=== PATIENT | female | born 1990 | race Caucasian/White ===

== ENCOUNTER 2022-08-20 16:10 | Emergency (ER) | payer OTHER ==
[~2022-08-20] VITALS: Ht 167.6 cm; Wt 53.1 kg
[2022-08-20] MEDS ORDERED: MORPHINE SULFATE INJ 4 MG/ML DISP.SYRIN ONE ×2 (17:20→20:46)
[2022-08-20] MEDS ORDERED: ONDANSETRON HCL/PF 4 MG/2 ML VIAL ONE ×2 (17:20→22:03)
[2022-08-20] MEDS ORDERED: ONDANSETRON HCL/PF 4 MG/2 ML VIAL IVP ONE (17:30)
[2022-08-20] MEDS ORDERED: IV NS 0.9% 1,000 ML BAG IV ONE ×3 (17:30→21:00)
[2022-08-20] MEDS ORDERED: MORPHINE SULFATE INJ 2 MG/ML DISP.SYRIN IV ONE ×2 (17:30→21:00)
[2022-08-20 18:00] LABS: EOSINOPHILS % (AUTO) 0.5 % (0.0-6.0); HEMATOCRIT 39 % (33-45); HEMOGLOBIN 12.5 g/dL (11.5-14.8); LYMPHOCYTES # (AUTO) 0.9 K/uL (0.8-4.8); LYMPHOCYTES % (AUTO) 22.6 % (20.0-44.0); MEAN CORPUSCULAR HGB CONC 32 g/dl (31.0-36.0); MEAN CORPUSCULAR VOLUME 87 fL (82-100); MONOCYTES # (AUTO) 0.3 K/uL (0.1-1.30); MONOCYTES % (AUTO) 6.7 % (2.0-12.0); NEUTROPHILS # (AUTO) 2.7 K/uL (1.8-8.9); NEUTROPHILS % (AUTO) 69.2 % (43.0-81.0); PLATELET COUNT (AUTO) 55 K/uL (150-450); RED BLOOD CELL COUNT(AUTO) 4.42 MIL/uL (4.0-5.2); WHITE BLOOD COUNT (AUTO) 3.9 K/uL (4.3-11.0)
[2022-08-20 18:10] LABS: BILIRUBIN,URINE 1+ (NEGATIVE); COLOR,URINE YELLOW (YELLOW); LEUKOCYTE ESTERASE ,URINE NEGATIVE (NEGATIVE); NITRITE, URINE POSITIVE (NEGATIVE); PH,URINE 6.5 (5.0-8.0); PROTEIN,URINE 2+ mg/dl (NEGATIVE); UGLUCOSE NEGATIVE (NEGATIVE)
[2022-08-20 18:13] LABS: CALCIUM, SERUM 9.1 mg/dL (8.5-10.1); CREATININE 0.6 mg/dL (0.6-1.3); POTASSIUM 2.9 mmol/L (3.5-5.1)
[2022-08-20 18:18] LABS: ALBUMIN 4.1 g/dL (3.4-5.0); BILIRUBIN,DIRECT 0.4 mg/dL (0.0-0.2); BILIRUBIN,TOTAL 0.9 mg/dL (0.2-1.0); TOTAL PROTEIN, SERUM 8.8 g/dL (6.4-8.2)
[2022-08-20 18:19] LABS: BACTERIA,URINE 1+ /HPF (None Seen); MUCUS,URINE Few /LPF (None Seen); RBC,URINE 51-80 /HPF (0-2); WBC,URINE 0-2 /HPF (0-3)
[2022-08-20] MEDS ORDERED: CEFTRIAXONE 1GM BAG (ER ONLY) 1 GM/50 ML PIGGYBACK IV ONE (19:30)
[2022-08-20] MEDS ORDERED: POTASSIUM CHLORIDE 20 MEQ TAB.PRT.SR PO ONE ×2 (19:30→19:38)
[2022-08-20] MEDS ORDERED: CEFTRIAXONE 1GM BAG (ER ONLY) 50 ML IV ONE (19:37)
[2022-08-20] MEDS: POTASSIUM CL. PREMIX PERIPHER. 50 ML IV SCH ×2 (19:58→20:56)
[2022-08-20 20:00] VITALS: BP 135/75
[2022-08-20 21:44] LABS: CALCIUM, SERUM 7.9 mg/dL (8.5-10.1); CREATININE 0.6 mg/dL (0.6-1.3); POTASSIUM 3.6 mmol/L (3.5-5.1)
[2022-08-20 22:29] LABS: BAND % (MANUAL) 3 % (0.0-5.0); LYMPHOCYTES % (MANUAL) 24 % (16-48); MONOCYTES % (MANUAL) 4 % (0-11.0); NEUTROPHILS % (MANUAL) 69 (42-76)
[2022-08-20] MEDS ORDERED: ONDANSETRON HCL/PF - ER 4 MG/2 ML VIAL IV ONE (22:30)
[2022-08-21] MEDS ORDERED: ONDANSETRON HCL/PF - ER 4 MG/2 ML VIAL IV ONE (01:00)
[2022-08-21] MEDS ORDERED: KETOROLAC TROMETHAMINE INJ 30 MG/ML VIAL IV ONE (01:00)
[2022-08-21] MEDS ORDERED: KETOROLAC TROMETHAMINE 15 MG/ML VIAL ONE (01:17)
[2022-08-21] MEDS ORDERED: ONDANSETRON HCL/PF 4 MG/2 ML VIAL ONE (01:17)
== END 2022-08-21 05:00 | disposition short-term general hospital (02) ==
LOC: ER 16:18
DX: A41.9 Sepsis, unspecified organism (principal); N12 Tubulo-interstitial nephritis, not specified as acute or chronic; E87.6 Hypokalemia; E87.20 Acidosis, unspecified; F10.90 Alcohol use, unspecified, uncomplicated; Z20.822 Contact with and (suspected) exposure to COVID-19
CPT/HCPCS: 99291; 74176; 96365; 76705; 96375 ×2; 96366; 87426; 96368; 96376 ×2; 85025; 80048 ×2; 87086; 83605 ×2; 83690; 80076; 84703; 81001; 36415; 87040 ×2; 87081; 85007; J2270 ×2; J2405 ×5; J7030 ×3; J0696; C9803; J1885

== ENCOUNTER 2022-10-27 10:08 | Emergency (ER) | payer OTHER ==
[~2022-10-27] VITALS: Ht 167.6 cm; Wt 80.3 kg
[2022-10-27] MEDS ORDERED: ONDANSETRON HCL/PF 4 MG/2 ML VIAL ONE (10:56)
[2022-10-27 11:00] LABS: BASOPHILS % (AUTO) 0.8 % (0.0-2.0); EOSINOPHILS % (AUTO) 0.3 % (0.0-6.0); HEMATOCRIT 37 % (33-45); HEMOGLOBIN 11.6 g/dL (11.5-14.8); LYMPHOCYTES # (AUTO) 1.4 K/uL (0.8-4.8); LYMPHOCYTES % (AUTO) 25.6 % (20.0-44.0); MEAN CORPUSCULAR HGB CONC 32 g/dl (31.0-36.0); MEAN CORPUSCULAR VOLUME 89 fL (82-100); MONOCYTES # (AUTO) 0.3 K/uL (0.1-1.30); MONOCYTES % (AUTO) 4.7 % (2.0-12.0); NEUTROPHILS # (AUTO) 3.7 K/uL (1.8-8.9); NEUTROPHILS % (AUTO) 68.6 % (43.0-81.0); PLATELET COUNT (AUTO) 269 K/uL (150-450); WHITE BLOOD COUNT (AUTO) 5.4 K/uL (4.3-11.0)
[2022-10-27] MEDS ORDERED: IV NS 0.9% 1,000 ML BAG IV ONE (11:00)
[2022-10-27] MEDS ORDERED: ONDANSETRON HCL/PF - ER 4 MG/2 ML VIAL IV ONE (11:00)
[2022-10-27 11:08] LABS: BILIRUBIN,URINE NEGATIVE (NEGATIVE); COLOR,URINE DARK YELLOW (YELLOW); LEUKOCYTE ESTERASE ,URINE NEGATIVE (NEGATIVE); NITRITE, URINE POSITIVE (NEGATIVE); PROTEIN,URINE 2+ mg/dl (NEGATIVE); UGLUCOSE NEGATIVE (NEGATIVE); UROBILINOGEN,URINE 0.2 EU/dL (0.2)
[2022-10-27 11:17] LABS: CALCIUM, SERUM 8.9 mg/dL (8.5-10.1); CREATININE 0.5 mg/dL (0.6-1.3); POTASSIUM 3.8 mmol/L (3.5-5.1)
[2022-10-27 11:20] LABS: BACTERIA,URINE Many /HPF (None Seen); RBC,URINE 0-2 /HPF (0-2); SQUAMOUS EPITHELIAL CELL,UR Few /HPF (None Seen)
[2022-10-27 11:22] LABS: ALBUMIN 4.4 g/dL (3.4-5.0); BILIRUBIN,TOTAL 0.4 mg/dL (0.2-1.0); TOTAL PROTEIN, SERUM 8.9 g/dL (6.4-8.2)
[2022-10-27] MEDS ORDERED: KETOROLAC TROMETHAMINE INJ 30 MG/ML VIAL IV ONE ×2 (12:00→13:00)
[2022-10-27] MEDS ORDERED: KETOROLAC TROMETHAMINE INJ 30 MG/ML VIAL ONE ×2 (12:05→13:29)
--- NOTE | 2022-10-27 12:13 | NUR ---
PT A/O X4 TOLORATING ROOM AIR 99% O2SAT. C/O RIGHT SIDED FLANK PAIN FEELING LIGHTHEADED. NAUSEA FOR 4 DAYS. PAIN HI IS 7/10 low is 5/10.
--- NOTE | 2022-10-27 12:41 | NUR ---
partner at bedside.
[2022-10-27] MEDS ORDERED: METOCLOPRAMIDE HCL 10 MG/2 ML VIAL IV ONE (13:00)
[2022-10-27] MEDS ORDERED: CEFTRIAXONE 1GM BAG (ER ONLY) 50 ML IV ONE (13:29)
[2022-10-27] MEDS ORDERED: MORPHINE SULFATE INJ 2 MG/ML DISP.SYRIN ONE (13:29)
[2022-10-27] MEDS ORDERED: METOCLOPRAMIDE HCL 10 MG/2 ML VIAL ONE (13:29)
[2022-10-27] MEDS ORDERED: CEFTRIAXONE 1GM BAG (ER ONLY) 1 GM/50 ML PIGGYBACK IV ONE (13:30)
[2022-10-27] MEDS ORDERED: MORPHINE SULFATE INJ 2 MG/ML DISP.SYRIN IV ONE (13:30)
[2022-10-27] MEDS ORDERED: KETO10TA2 PO (14:55)
[2022-10-27] MEDS ORDERED: SULF1TAB48 PO (14:55)
--- NOTE | 2022-10-27 15:14 | NUR ---
IV removed. Catheter intact and site benign. Pressure and 4x4 applied to site. No bleeding noted.
--- NOTE | 2022-10-27 15:14 | NUR ---
Patient discharged to home in stable condition. Written and verbal after care instructions given. Patient verbalizes understanding of instruction.
[2022-10-27 15:15] VITALS: BP 133/79
--- NOTE | 2022-10-27 15:15 | NUR ---
AFTER RECEIVING PAIN MEDS AND ABX PT STATES PAIN HAS STOPPED
== END 2022-10-27 15:15 | disposition home or self-care (01) ==
LOC: ER 10:10
DX: N12 Tubulo-interstitial nephritis, not specified as acute or chronic (principal)
CPT/HCPCS: 99284; 96365; 96375; 96361; 96376; 85025; 87086; 84703; 81001; 36415; 80053; J2765; J1885 ×2; J2405; J7030; J2270; J0696

== ENCOUNTER 2023-03-11 12:30 | Inpatient (IN) | payer OTHER ==
[~2023-03-11] VITALS: Ht 167.6 cm; Wt 55.5 kg
[~2023-03-11 12:30] MED LIST: KETO10TA2 PO; SULF1TAB48 PO
--- NOTE | 2023-03-11 12:30 | NUR ---
BIBS FOR FLANK PAIN. A/O X 3, ABLE TO MAKE NEEDS KNOWN, WILL CONTINUE TO MONITOR.
[2023-03-11] MEDS ORDERED: KETOROLAC TROMETHAMINE INJ 30 MG/ML VIAL IV ONE (13:00)
[2023-03-11] MEDS ORDERED: KETOROLAC TROMETHAMINE 15 MG/ML VIAL ONE (13:01)
--- NOTE | 2023-03-11 13:02 | NUR ---
BLOOD DRAWN AND SENT TO LAB
[2023-03-11 13:18] LABS: BASOPHILS % (AUTO) 0.7 % (0.0-2.0); HEMATOCRIT 34 % (33-45); HEMOGLOBIN 11.4 g/dL (11.5-14.8); LYMPHOCYTES # (AUTO) 1.5 K/uL (0.8-4.8); LYMPHOCYTES % (AUTO) 24.4 % (20.0-44.0); MEAN CORPUSCULAR HGB CONC 34 g/dl (31.0-36.0); MEAN CORPUSCULAR VOLUME 85 fL (82-100); MONOCYTES # (AUTO) 0.3 K/uL (0.1-1.30); MONOCYTES % (AUTO) 4.7 % (2.0-12.0); NEUTROPHILS # (AUTO) 4.3 K/uL (1.8-8.9); NEUTROPHILS % (AUTO) 70.2 % (43.0-81.0); PLATELET COUNT (AUTO) 104 K/uL (150-450); RED BLOOD CELL COUNT(AUTO) 3.98 MIL/uL (4.0-5.2); WHITE BLOOD COUNT (AUTO) 6.1 K/uL (4.3-11.0)
[2023-03-11 13:30] LABS: CALCIUM, SERUM 9.3 mg/dL (8.5-10.1); CREATININE 0.5 mg/dL (0.6-1.3); POTASSIUM 3.3 mmol/L (3.5-5.1)
[2023-03-11 13:37] LABS: ALBUMIN 4.3 g/dL (3.4-5.0); BILIRUBIN,DIRECT 0.3 mg/dL (0.0-0.2); BILIRUBIN,TOTAL 0.7 mg/dL (0.2-1.0); TOTAL PROTEIN, SERUM 9.1 g/dL (6.4-8.2)
--- NOTE | 2023-03-11 14:28 | NUR ---
URINE COLLECTED AND SENT TO THE LAB
[2023-03-11 14:48] LABS: BILIRUBIN,URINE NEGATIVE (NEGATIVE); COLOR,URINE YELLOW (YELLOW); LEUKOCYTE ESTERASE ,URINE NEGATIVE (NEGATIVE); NITRITE, URINE POSITIVE (NEGATIVE); PH,URINE 6.5 (5.0-8.0); PROTEIN,URINE 3+ mg/dl (NEGATIVE); UGLUCOSE NEGATIVE (NEGATIVE)
[2023-03-11] MEDS ORDERED: ONDANSETRON HCL/PF 4 MG/2 ML VIAL ONE ×2 (14:59→19:37)
[2023-03-11] MEDS ORDERED: MORPHINE SULFATE INJ 2 MG/ML DISP.SYRIN ONE (14:59)
[2023-03-11] MEDS ORDERED: MORPHINE SULFATE INJ 2 MG/ML DISP.SYRIN IV ONE (15:00)
[2023-03-11] MEDS ORDERED: ONDANSETRON HCL/PF - ER 4 MG/2 ML VIAL IV ONE ×2 (15:00→19:30)
[2023-03-11] MEDS ORDERED: IV NS 0.9% 1,000 ML BAG IV ONE (15:00)
--- NOTE | 2023-03-11 15:26 | NUR ---
LACTIC ACID 2.7 Addendum: 03/11/23 at 1715 by JOELLE MD EASLEY
[2023-03-11] MEDS ORDERED: CEFTRIAXONE 1GM BAG (ER ONLY) 50 ML IV ONE (15:54)
[2023-03-11] MEDS ORDERED: CEFTRIAXONE 1GM BAG (ER ONLY) 1 GM/50 ML PIGGYBACK IV ONE (16:00)
[2023-03-11 16:31] LABS: BACTERIA,URINE 2+ /HPF (None Seen); RBC,URINE 21-50 /HPF (0-2); WBC,URINE 0-2 /HPF (0-3)
[2023-03-11] MEDS ORDERED: ACETAMINOPHEN ES 500 MG TABLET PO ONE (19:30)
[2023-03-11] MEDS ORDERED: ACETAMINOPHEN ES 500 MG TABLET ONE (19:37)
--- NOTE | 2023-03-11 20:10 | NUR ---
TELEGRAPH EQUIPMENT MAINTAINER AT PT'S BEDSIDE
--- NOTE | 2023-03-11 21:00 | NUR ---
PATEL BERNAL, HOSPITALIST AT BED SIDE
[2023-03-11] MEDS ORDERED: TEMAZEPAM 15 MG CAPSULE PO PRN (21:30)
[2023-03-11] MEDS ORDERED: MAG HYDROX/AL HYDROX/SIMETH 30 ML UDC PO PRN (21:30)
[2023-03-11] MEDS ORDERED: MAGNESIUM HYDROXIDE 30 ML UDC PO PRN (21:30)
[2023-03-11] MEDS ORDERED: Z GUARD REMEDY 4 OZ OINT TP PRN (21:30)
[2023-03-11] MEDS ORDERED: MORPHINE SULFATE INJ 2 MG/ML DISP.SYRIN IV PRN (21:30)
[2023-03-11] MEDS ORDERED: IV NS 0.9% 1,000 ML IV PRN ×2 (21:30→21:32)
[2023-03-11] MEDS ORDERED: HYDROCODONE/APAP 5/325MG TABLET PO PRN (21:30)
[2023-03-11] MEDS ORDERED: ACETAMINOPHEN 325 MG TABLET PO PRN (21:30)
--- NOTE | 2023-03-11 21:30 | NUR ---
REPORT GIVEN TO JENS AT [facility]
--- NOTE | 2023-03-11 21:37 | NUR ---
PATIENT BEING TRANSPORTED TO [facility]IA [facility]
[2023-03-11 21:45] VITALS: BP 132/89; TEMP 97.9; O2SAT 97
--- NOTE | 2023-03-11 22:30 | NUR ---
ADMITTED PATIENT FROM ED DUE TO RIGHT LOWER BACK PAIN X7 DAYS. ALERT/ORIENTED X4, ROOM AIR, COMPLAINING OF RIGHT FLANK PAIN, DX ACUTE PYELONEPHRITIS. GIVEN MAXIPIME IN ED. PATIENT HAVING NAUSEA AND VOMITING, RECEIVED ZOFRAN IN ED AND IN UNIT.
[2023-03-11] MEDS: ONDANSETRON HCL/PF 4 MG/2 ML VIAL IVP PRN (22:33)
--- NOTE | 2023-03-12 03:44 | NUR ---
PATIENT STILL VOMITING, GIVEN ZOFRAN 4 MG IV AT 2233, NOTIFIED RICHARD BERNAL. PER NUDE MODEL, OK TO GIVE ZOFRAN ONE HOUR EARLY. ANOTHER ANTI EMETIC REGLAN 5 MG IV Q8HRS PRN LAST RESORT.
[2023-03-12] MEDS: ONDANSETRON HCL/PF 4 MG/2 ML VIAL IVP PRN (03:50)
[2023-03-12 04:51] VITALS: BP 127/70; TEMP 98; O2SAT 98
[2023-03-12 05:51] LABS: BASOPHILS % (AUTO) 0.4 % (0.0-2.0); EOSINOPHILS % (AUTO) 0.2 % (0.0-6.0); HEMATOCRIT 32 % (33-45); HEMOGLOBIN 10.6 g/dL (11.5-14.8); LYMPHOCYTES % (AUTO) 17.4 % (20.0-44.0); MEAN CORPUSCULAR HGB CONC 33 g/dl (31.0-36.0); MEAN CORPUSCULAR VOLUME 87 fL (82-100); MONOCYTES # (AUTO) 0.3 K/uL (0.1-1.30); MONOCYTES % (AUTO) 6.1 % (2.0-12.0); NEUTROPHILS # (AUTO) 4.2 K/uL (1.8-8.9); NEUTROPHILS % (AUTO) 75.9 % (43.0-81.0); PLATELET COUNT (AUTO) 82 K/uL (150-450); RED BLOOD CELL COUNT(AUTO) 3.72 MIL/uL (4.0-5.2); WHITE BLOOD COUNT (AUTO) 5.5 K/uL (4.3-11.0)
[2023-03-12 06:05] LABS: CALCIUM, SERUM 8.4 mg/dL (8.5-10.1); CREATININE 0.4 mg/dL (0.6-1.3); MAGNESIUM 1.8 mg/dL (1.8-2.4); PHOSPHORUS 2.5 mg/dL (2.5-4.9); POTASSIUM 3.6 mmol/L (3.5-5.1)
[2023-03-12] MEDS: METOCLOPRAMIDE HCL 10 MG/2 ML VIAL IV PRN ×2 (07:26→17:57)
--- NOTE | 2023-03-12 07:26 | NUR ---
RN NOTE- PT AOX4, NAUSEA AND VOMITING AT PRESENT UNRELIEVED W PREVIOUS ZOFRAN ADMINISTRATION. REGLAN 5 MG IVP ADMINISTERED. MONITOR
[2023-03-12 07:30] VITALS: BP 141/98; TEMP 98.1; O2SAT 97
[2023-03-12] MEDS ORDERED: PANTOPRAZOLE 40 MG TABLET.DR PO SCH (07:30)
--- NOTE | 2023-03-12 08:30 | NUR ---
MS RN OPENING NOTE RECEIVED PATIENT RESTFUL IN BED A&O x4,BREATHING WELL ON ROOM AIR,PATIENT VERBILISED OF NAUSEA,RN WANDA ADMINISTERED REGLAN 5 MG IVP .VITALS TAKEN WITHIN NORMAL RANGE. HAS AN IV ACCESS ON THE RIGHT HAND ,INTACT AND INFUSING,ON NS 100ML/HR SKIN IS INTACT,SAFETY MEASURES IN PLACE,BED IN LOW POSITION &LOCKED,BED RAILS x2 CALL ORR AND TABLE WITHIN REACH,CONTINUES WITH CURRENT PLAN OF CARE,CLOSE MONITORING,HOURLY ROUNDING/PRN
[2023-03-12] MEDS ORDERED: KETOROLAC TROMETHAMINE INJ 30 MG/ML VIAL IM PRN (09:00)
[2023-03-12 13:20] LABS: BASOPHILS % (MANUAL) 0 % (0.0-2.0); EOSINOPHILS % (MANUAL) 0 % (0-4); LYMPHOCYTES % (MANUAL) 15 % (16-48); MONOCYTES % (MANUAL) 6 % (0-11.0); NEUTROPHILS % (MANUAL) 79 (42-76)
[2023-03-12 16:00] VITALS: BP 126/88; TEMP 98.6; O2SAT 97
[2023-03-12] MEDS ORDERED: CEFTRIAXONE 1 G in IV D5W 50 ML IV SCH (16:00)
--- NOTE | 2023-03-12 18:48 | NUR ---
MS RN CLOSING NOTE PATIENT RESTFUL IN BED A&O x4,BREATHING WELL ON ROOM AIR,NAUSEA IMPROVED HAS AN IV ACCESS ON THE RIGHT HAND ,INTACT AND SL. SKIN IS INTACT,SAFETY MEASURES IN PLACE,BED IN LOW POSITION &LOCKED,BED RAILS x2 CALL ORR AND TABLE WITHIN REACH,CONTINUES WITH CURRENT PLAN OF CARE,CLOSE MONITORING,HOURLY ROUNDING/PRN
--- NOTE | 2023-03-12 19:28 | NUR ---
RN OPENING NOTE; RECEIVED PT IN BED AAOX4 ABLE TO MAKE NEEDS KNOWN ON RM AIR JIA WELL SAT 99% NO SOB/DISTRESS NOTED,NO COMPLAIN OF PAIN/DISCOMFORT AT THIS TIME,IV ACCESS ON LAC 20G PATENT AND INTACT,SAFETY MEASURE IN PLACE.CALL LIGHT WITHIN REACH,WILL CONTINUE TO MONITOR.
[2023-03-12 20:00] VITALS: BP 119/81; TEMP 98.5; O2SAT 97
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
--- NOTE | 2023-03-13 01:45 | NUR ---
RN NOTE; PATIENT SIGN AGAINS MEDICAL ADVICE (AMA).REMOVE IV SITE AND NAME BAND,PATIENT SAID,BELONGING CARRIED WITH PT,IM NOT SAFE HER FOR WHAT HAPPEN.PT PERIOD OF HALLUCINATION.BUT STEADY GAIT.
== END 2023-03-13 02:35 | disposition left against medical advice (07) | DRG 463 ==
LOC: ER 12:34 → MED 21:09
PROVIDERS: ADMIT Nurse Practitioner Acute Care; ATTEND Internal Medicine
DX: N10 Acute pyelonephritis (principal); E44.0 Moderate protein-calorie malnutrition; R64 Cachexia; E87.1 Hypo-osmolality and hyponatremia; E87.20 Acidosis, unspecified; Z68.1 Body mass index [BMI] 19.9 or less, adult; E86.1 Hypovolemia; E87.6 Hypokalemia; F17.290 Nicotine dependence, other tobacco product, uncomplicated; Z71.6 Tobacco abuse counseling; R74.01 Elevation of levels of liver transaminase levels; Z20.822 Contact with and (suspected) exposure to COVID-19
CPT/HCPCS: 36415; 71045-TC; 80048-TC; 80076-TC; 81001; 83605-TC; 83690-TC; 83735-TC; 84100-TC; 84702-TC; 84703-TC; 85025-TC; 85378-TC; 87040-TC; 87081-TC; 87086-TC; A4223; C9803; G0378; J0696; J1885; J2270; J2405; J2765; J7030; J7060